=== PATIENT | male | born 1960 | race Caucasian/White ===

== ENCOUNTER 2020-12-15 16:25 | Inpatient (IN) ==
[2020-12-15] MEDS ORDERED: IOPAMIDOL 100 ML BOTTLE IV ONE (16:26)
[2020-12-15] MEDS ORDERED: ONDANSETRON 4 MG/2 ML VIAL IV ONE (16:27)
[2020-12-15] MEDS ORDERED: 0.9 % SODIUM CHLORIDE 1,000 ML IV ONE (16:27)
[2020-12-15] MEDS: morphine 2 MG/ML VIAL IV PRN ×2 (16:46→17:59)
[2020-12-15] MEDS ORDERED: diphenhydrAMINE 50 MG/ML VIAL IV ONE (16:49)
[2020-12-15 16:58] LABS: POC Creatinine 0.8 mg/dL (0.6-1.2)
--- NOTE | 2020-12-15 16:58 | Emergency Department Note ---
Abdominal Pain HPI General Chief Complaint: Abdominal Pain Stated Complaint: abdominal pain Time Seen by Provider: 12/15/20 16:27 Source: patient Mode of arrival: ambulatory Limitations: no limitations History of Present Illness HPI Narrative: 60-year-old male with a history of hypertension presents the ER to be evaluated for generalized abdominal pain. I received a call from Dr. Fink at the urgent care and stated he had significant abdominal pain with decreased bowel sounds. She wanted him to have further evaluation in the emergency room. The only medication he takes is losartan at this time. He states he has had CT scans previously with contrast and he felt hot inside but did not have any rash, hives or airway involvement. He states his abdominal pain was acute in onset this morning at approximately 8:30 in the morning. It was not after eating food. He has never had an abdominal surgery and still has his gallbladder and. He has had no vomiting. He only becomes nauseous when he has bouts of abdominal pain which has been intermittent and nothing is made them better or worse and he is unsure what triggers them. He defines his pain is periumbilical. He denies diarrhea, blood or mucus in his stool and has been passing regular urinary symptoms. He denies chest pain or chest pressure. He has no other acute complaints at this time. Pt last ate around 8:30 am a few pieces of toast. Related Data Previous Rx's Medication Instructions Recorded losartan 100 1 tab PO QDAY #30 tab 03/28/18 mg-hydrochlorothiazide 12.5 mg tablet Allergies Allergy/AdvReac Type Severity Reaction Status Date / Time iodine Allergy Intermediate Unknown Verified 12/15/20 16:30 Review of Systems ROS ROS Narrative: Narrative: All systems ED: reviewed and negative except as stated. PFS Narrative Patient History Narrative: Narrative: Medical/Surgical/Family History All Active Problems (Updated 12/15/20 @ 18:55 by Orlando Mcknight PA-C) Bowel obstruction (Acute) Abdominal pain (Acute) Chest pain (Acute) Hyperglycemia (Acute) Benign positional vertigo (Acute) Diabetes mellitus, new onset (Acute) Thoracic back pain (Chronic) Plantar fasciitis of left foot (Chronic) Hx of colonoscopy (Chronic) Mixed hyperlipidemia (Chronic 01/04/15) Hypertension, essential (Chronic 01/04/15) Medical History Abdominal pain Hypertension, essential (01/04/15) daily monitoring, aerobic exercise, watch salt intake Mixed hyperlipidemia (01/04/15) Plantar fasciitis of left foot ice, stretch with tennis ball qhs after work, firm soled boots with good arch support Surgical History Hx of colonoscopy 2008- Parent Family History Brother Cerebrovascular accident (CVA) Essential hypertension Mother Malignant neoplasm of lung Father Acute myocardial infarction Grandmother Malignant neoplasm of pancreas Social History Smoking Status: Smokeless tobacco Alcohol Intake Frequency: a few times a week Substance Use: does not use Exam Narrative Narrative: Gen: Patient in obvious discomfort pacing back and forth in the room with normal gait. Eyes: PERRL, no conjunctival injection , and symmetrical lids. Sclerae non icteric CVS: +S1/S2, No murmurs or gallops. Radial pulses 2+ and equal bilat. No swelling RESP: Unlabored respiratory effort . Clear to auscultation bilaterally (CTAB). No noted wheezes rales or ronchi. GI: Slight distention of the abdomen, no significant tenderness to palpation. Patient is tender to deep palpation over the umbilicus and the left lower qu adrant. No rebound tenderness or focal peritonitis. Patient has hypoactive bowel sounds MSK: Extremities w/o deformity or ttp. No cyanosis or clubbing. Skin: Warm, Dry . No rashes or lesions . Cap refill less than 2. Neuro: No focal neurological deficit Psych: Awake, Alert, & Oriented (AAO) x3. Appropriate mood and affect . General Limitations: no limitations Course Course Course Narrative: Patient will be evaluated with CBC, CMP, lipase and given Zofran and morphine for nausea and pain. He does report that he felt hot last time he had contrast. He will be premedicated with 50 mg of Benadryl for the CT scan of the abdomen and pelvis. Point of care creatinine will also be evaluated before contrast load. Patient will also be hydrated with fluids. Vital Signs Vital signs: Vital Signs Temperature 98.1 F 12/15/20 16:26 Pulse Rate 71 12/15/20 16:26 Respiratory Rate 18 12/15/20 16:26 Blood Pressure 137/76 12/15/20 16:26 Pulse Oximetry (%) 99 12/15/20 16:26 Temperature 98.1 F 12/15/20 16:26 Pulse Rate 64 12/15/20 16:33 Respiratory Rate 18 12/15/20 16:26 Blood Pressure 116/75 12/15/20 16:33 Pulse Oximetry (%) 97 12/15/20 16:33 MDM MDM Narrative Medical decision making narrative: Patient tolerated contrast load well without any allergic type picture. He is now comfortably sitting in the room without any abdominal pain. Pending lab work and CT results. CBC: Unremarkable CMP: Glucose elevated 185 otherwise unremarkable Lipase: Normal CT the abdomen pelvis: Mid jejunal stricture and partial obstruction I spoke with Dr. Melgar general surgeon on the phone who said he would review imaging back. Went back in to discuss results with the patient and he said he is having his pain occur intermittently and sometimes it is improved with positioning but he feels like the morphine is not completely relieving his pain anymore. He says the episodes of pain come and go and he is currently pain-free but he had several minutes that were excruciating. Dr. Melgar: I saw the patient in the room with Dr. Melgar who will admit the patient will likely do surgery tomorrow. He requested NG tube be placed. Patient will be admitted to the surgical floor. Lab Data Result diagrams: 12/15/20 16:47 12/15/20 16:47 Discharge Plan Patient/Caregiver Discharge Instructions Pt seen by ORTHOTIST PROSTHETIST/PA only: No Clinical Impression: Bowel obstruction Patient Disposition: Xfer As Inpt ([facility]) Follow up with: No,PCP [Primary Care Provider] - Mundo Melgar MD [Physician] - Prescriptions: No Action losartan-hydrochlorothiazide 100-12.5 mg tablet 1 tab PO QDAY Qty: 30 RF: 12
[2020-12-15 17:29] LABS: Basophils # (Auto) 0.01 K/mcL (0.00-0.20); Basophils % (Auto) 0.1 % (0.0-2.0); Eosinophils # (Auto) 0.01 K/mcL (0.00-0.70); Eosinophils % (Auto) 0.1 % (0.0-7.0); Hematocrit 46.6 % (41.0-55.0); Hemoglobin 15.8 g/dL (13.5-16.5); Lymphocytes # (Auto) 0.56 K/mcL (1.50-4.80); Lymphocytes % (Auto) 6.1 % (15.0-49.0); Mean Cell Volume 90.1 fL (80.0-100.0); Mean Corpuscular HGB Conc 33.9 g/dL (31.0-36.0); Mean Platelet Volume 10.9 fL (7.4-10.4); Monocytes # (Auto) 0.21 K/mcL (0.10-0.90); Monocytes % (Auto) 2.3 % (1.0-12.0); Neutrophils % (Auto) 91.4 % (38.0-78.0); Platelet Count 260 K/mcL (140-440); RBC 5.17 M/mcL (4.50-5.90); Red Cell Distribution Width 12.2 % (11.5-14.5); WBC 9.2 K/mcL (4.5-11.0)
[2020-12-15 17:49] LABS: ALT/SGPT 31 U/L (<40); AST/SGOT 20 U/L (<40); Albumin 4.3 gm/dL (3.2-5.2); Albumin/Globulin Ratio 1.3 (1.0-2.3); Alkaline Phosphatase 97 U/L (39-117); Bilirubin,Total 0.6 mg/dL (0.1-1.0); Blood Urea Nitrogen 12 mg/dL (6-20); Calcium 9.3 mg/dL (8.6-10.4); Carbon Dioxide 27 mmol/L (22-30); Chloride 99 mmol/L (96-108); Globulin 3.4 gm/dL (2.2-3.7); Glomerular Filtration Rate 93; Glucose 185 mg/dL (70-105)
--- NOTE | 2020-12-15 17:59 | Cat Scan Report ---
CLINICAL INFORMATION: Periumbilical pain COMPARISON: None. TECHNIQUE: Following enteric contrast, 80 cc of Isovue-370 were injected intravenously, and 60 seconds later, 0.625 mm helical slices were obtained from the mid heart through the subtrochanteric regions. Following reconstruction, 2.5 mm sagittal, coronal and axial reformatted images were processed and reviewed at bone, lung and soft tissue windows. Five minutes later, 0.625 mm helical slices were obtained from the mid heart through the kidneys and viewed at soft tissue windows.The exam was performed using radiation dose optimization techniques including, but not limited to, automated exposure control, adjustment of the mA and/or kV according to patient size and use of iterative reconstruction technique. FINDINGS: Lung bases show no abnormality - no effusion. Visualized heart is normal. Abdominal images show the gallbladder and bile ducts, liver, both kidneys, adrenal glands, spleen, pancreas and aorta, including aortic branches be normal in size and duration attenuation without focal lesion. There is no free air, free fluid or adenopathy. Pelvic images show urinary bladder, prostate and seminal vesicles to be normal. The stomach, duodenum and proximal jejunum are moderately dilated due to a mild stricture at the mid jejunal level in the anterior mid mesenteric cavity. This is best seen on axial image 112 and coronal image 24. The small bowel distal to this is decompressed and there is only minimal stool within the colon.The appendix is normal. Bone windows show partial ankylosis of the SI joints and chest progressed from previous CT. No other osseous abnormality. No syndesmophytes or other signs of ankylosing spondylitis in the lumbar spine IMPRESSION: 1. 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 2. Partial ankylosis of the SI joints. Patient may have ankylosing spondylitis. Please correlate HLA-B27 and other arthritic serologies Interpreted and Authenticated by: Vladimir Godoy 12/15/20
[2020-12-15] MEDS ORDERED: morphine 4 MG/ML VIAL IV PRN (19:11)
[2020-12-15] MEDS ORDERED: ONDANSETRON 4 MG/2 ML VIAL IV PRN (19:11)
--- NOTE | 2020-12-15 19:21 | General Surg History&Physical ---
HPI History of Present Illness Patient information: Note initiated : 12/15/20 at 7:18 pm Service Date, if different from initiated Date: [] Patient: Duane Mcnulty a 60 y/o M admitted on for abdominal pain. Chief Complaint: [] Chief complaint: Abdominal pain and distention History of present illness: Mr. Mcnulty is a 60 year old M who presents to [facility] emergency room with 1 day history of abdominal distention, crampy a bdominal pain. He was in his normal state of health without any prior significant past medical or surgical history who this afternoon started having crampy abdominal pain. It gradually progressed over the day he got to the point where he could not stand any further. Presented to the emergency room where CT scan is consistent with a mid small bowel obstruction. He denies any prior abdominal surgery. He denies any fevers or chills. He has had mild nausea without emesis. Review of Systems Review of systems: All systems are reviewed, negative other than above PFSH PFSH All Active Problems Bowel obstruction (Acute) Abdominal pain (Acute) Chest pain (Acute) Hyperglycemia (Acute) Benign positional vertigo (Acute) Diabetes mellitus, new onset (Acute) Thoracic back pain (Chronic) Plantar fasciitis of left foot (Chronic) Hx of colonoscopy (Chronic) Mixed hyperlipidemia (Chronic 01/04/15) Hypertension, essential (Chronic 01/04/15) Medical History Abdominal pain Hypertension, essential (01/04/15) daily monitoring, aerobic exercise, watch salt intake Mixed hyperlipidemia (01/04/15) Plantar fasciitis of left foot ice, stretch with tennis ball qhs after work, firm soled boots with good arch support Surgical History Hx of colonoscopy 2007- Parent Family History Brother Cerebrovascular accident (CVA) Essential hypertension Mother Malignant neoplasm of lung Father Acute myocardial infarction Grandmother Malignant neoplasm of pancreas Social History marital status: single alcohol intake frequency: a few times a week substance use type: does not use MEDS/ALLERGIES Home Medications and Allergies Home Medications Medication Instructions Recorded Confirmed Type losartan 100 1 tab PO QDAY #30 tab 03/28/18 12/15/20 Rx mg-hydrochlorothiazide 12.5 mg tablet Allergies Allergy/AdvReac Type Severity Reaction Status Date / Time iodine Allergy Intermediate Unknown Verified 12/15/20 16:30 Physical Examination Vital Signs Vital signs: Temp Pulse Resp BP Pulse Ox 98.1 F 72 18 115/77 96 12/15/20 16:26 12/15/20 18:31 12/15/20 16:26 12/15/20 19:01 12/15/20 18:31 General physical appearance General physical exam: well developed, well nourished and no distress Eyes Eye exam: PERRL and normal ocular movement ENT ENT exam: normal pinna, normal nares, normal mucosa, no hearing loss and no congestion Head Head exam IM: Present atraumatic and normocephalic Neck Neck exam: no masses, no bruits, trachea midline, no lymphadenopathy and no venous distension Cardiovascular Cardiovascular exam IM: Present normal rate and rhythm Respiratory Respiratory exam: normal expansion, normal respiratory effort, clear to percussion and clear to auscultation Abdomen Abdomen: Present soft, bowel sounds and distended Hernia: Present none Genitourinary Genitourinary (Male): Present normal penis with no external lesions Rectum Rectum: Present normal sphincter tone, no hemorrhoids, no tenderness, no masses and no bleeding Integumentary Integumentary: Present no rash, no growths and no abnormal pigmentation Neurologic Neurologic: Present normal coordination and normal sensation Musculoskeletal Musculoskeletal: Present normal gait and normal posture Psychiatric Psychiatric: Present oriented to time, oriented to person, oriented to place, speech is normal and memory intact Results Labs Result diagrams: 12/15/20 16:47 12/15/20 16:47 Labs: Abnormal lab results 12/15/20 12/15/20 Range/Units 16:47 16:47 MPV 10.9 H (7.4-10.4) fL Neut % (Auto) 91.4 H (38.0-78.0) % Lymph % (Auto) 6.1 L (15.0-49.0) % Lymph # (Auto) 0.56 L (1.50-4.80) K/mcL Absolute Neutrophils 8.39 H (1.80-8.00) K/mcL Glucose 185 H (70-105) mg/dL Diabetes panel 12/15/20 Range/Units 16:47 Sodium 136 (133-145) mmol/L Potassium 4.3 (3.3-5.1) mmol/L Chloride 99 (96-108) mmol/L Carbon Dioxide 27 (22-30) mmol/L BUN 12 (6-20) mg/dL Creatinine 0.9 (0.7-1.2) mg/dL Glucose 185 H (70-105) mg/dL Calcium 9.3 (8.6-10.4) mg/dL AST 20 (<40) U/L ALT 31 (<40) U/L Alkaline Phosphatase 97 (39-117) U/L Total Protein 7.7 (5.9-8.4) gm/dL Albumin 4.3 (3.2-5.2) gm/dL Calcium panel 12/15/20 Range/Units 16:47 Calcium 9.3 (8.6-10.4) mg/dL Albumin 4.3 (3.2-5.2) gm/dL Pituitary panel 12/15/20 Range/Units 16:47 Sodium 136 (133-145) mmol/L Potassium 4.3 (3.3-5.1) mmol/L Chloride 99 (96-108) mmol/L Carbon Dioxide 27 (22-30) mmol/L BUN 12 (6-20) mg/dL Creatinine 0.9 (0.7-1.2) mg/dL Glucose 185 H (70-105) mg/dL Calcium 9.3 (8.6-10.4) mg/dL Adrenal panel 12/15/20 Range/Units 16:47 Sodium 136 (133-145) mmol/L Potassium 4.3 (3.3-5.1) mmol/L Chloride 99 (96-108) mmol/L Carbon Dioxide 27 (22-30) mmol/L BUN 12 (6-20) mg/dL Creatinine 0.9 (0.7-1.2) mg/dL Glucose 185 H (70-105) mg/dL Calcium 9.3 (8.6-10.4) mg/dL Total Bilirubin 0.6 (0.1-1.0) mg/dL AST 20 (<40) U/L ALT 31 (<40) U/L Alkaline Phosphatase 97 (39-117) U/L Total Protein 7.7 (5.9-8.4) gm/dL Albumin 4.3 (3.2-5.2) gm/dL All other labs normal. A/P Narrative A/P Narrative: This is a pleasant 60-year-old gentleman without prior abdominal surgery who presents with a high-grade small bowel obstruction in the mid jejunum. Patient has no prior abdominal surgery, therefore no reason for adhesive disease. Discussed with him at length high likelihood for need of surgery given his CT findings and no prior surgery. Risk benefits and alternatives to treatment plan discussed at length, he verbalizes understanding and desires to continue with treatment. Plan admit, will make him n.p.o., NG tube and I do want to the OR schedule in th e a.m. for a laparoscopic exploration possible small bowel resection. Time Spent With Patient Time: Total time spent is greater than 50% in coordination of care (as documented) at patient's floor/unit and/or counseling patient:
[2020-12-15] MEDS ORDERED: ceFAZolin 2 GM in DEXTROSE 5% IN WATER 50 ML IV SCH (19:30)
[2020-12-15] MEDS: LACTATED RINGERS 1,000 ML IV SCH (21:39)
[2020-12-15] MEDS: 0.9 % SODIUM CHLORIDE 10 ML SYRINGE IV SCH (22:19)
--- NOTE | 2020-12-16 03:45 | XRay Report ---
CLINICAL INFORMATION: GE position COMPARISON: None. TECHNIQUE: PA and Lateral views FINDINGS: NG tube is in the proximal gastric body The heart size, mediastinum and pulmonary vessels are unremarkable. The lungs are clear. There are no effusions. The bones and soft tissues are within normal limits. IMPRESSION: No cardiopulmonary disease. NG tube in the proximal gastric body. Interpreted and Authenticated by: Vladimir Godoy 12/16/20
[2020-12-16] MEDS: LACTATED RINGERS 1,000 ML IV SCH ×4 (05:50→21:41)
[2020-12-16] MEDS: 0.9 % SODIUM CHLORIDE 10 ML SYRINGE IV SCH ×3 (06:06→21:42)
[2020-12-16 08:44] LABS: Appearance,Urine CLEAR (Clear); Bilirubin,Urine Negative (Negative); Color,Urine YELLOW; Culture Indicated,Urine No; Glucose,Urine (UA) Negative (Negative); Ketones,Urine Negative (Negative); Leukocyte Esterase,Urine Negative /ug (Negative); Nitrate,Urine Negative (Negative); Protein,Urine Negative (Negative); Specific Gravity,Urine 1.032 (1.000-1.035); Urine Blood Negative (Negative); Urobilinogen,Urine Negative
[2020-12-16] MEDS ORDERED: IPRATROPIUM/ALBUTEROL 3 ML AMPUL.NEB NEB PRN ×2 (10:00→13:07)
[2020-12-16] MEDS ORDERED: SCOPOLAMINE 1 PATCH PATCH TOPICAL PRN (10:00)
[2020-12-16] MEDS ORDERED: ceFAZolin 2 GM in DEXTROSE 5% IN WATER 50 ML IV SCH (11:00)
[2020-12-16] MEDS ORDERED: GLYCOPYRROLATE 0.2 MG/ML VIAL IV ONE (12:05)
[2020-12-16] MEDS ORDERED: PROPOFOL 200 MG/20 ML VIAL IV ONE (12:05)
[2020-12-16] MEDS ORDERED: MAGNESIUM SULFATE 2 GM/50 ML BAG IV ONE (12:05)
[2020-12-16] MEDS ORDERED: MIDAZOLAM 2 MG/2 ML VIAL ONE (12:05)
[2020-12-16] MEDS ORDERED: PHENYLEPHRINE 10 MG/ML VIAL ONE (12:05)
[2020-12-16] MEDS ORDERED: fentaNYL 100 MCG/2 ML VIAL IV ONE (12:05)
[2020-12-16] MEDS ORDERED: ONDANSETRON 4 MG/2 ML VIAL ONE (12:05)
[2020-12-16] MEDS ORDERED: ROCURONIUM 10 MG/ML ML IV ONE (12:05)
[2020-12-16] MEDS ORDERED: SUCCINYLCHOLINE 20 MG/ML ML IV ONE (12:05)
[2020-12-16] MEDS ORDERED: SUGAMMADEX SODIUM 200 MG/2 ML VIAL IV ONE (12:05)
[2020-12-16] MEDS ORDERED: LIDOCAINE HCL/PF 100 MG/5 ML SYRINGE IV ONE (12:05)
[2020-12-16] MEDS ORDERED: KETAMINE 100 MG/ML ML ONE (12:05)
[2020-12-16] MEDS ORDERED: HYDROmorphone 1 MG/ML SYRINGE ONE (12:05)
[2020-12-16] MEDS ORDERED: DEXAMETHASONE 10 MG/ML VIAL ONE (12:05)
[2020-12-16] MEDS ORDERED: MEPERIDINE 25 MG/ML VIAL IV PRN (13:07)
[2020-12-16] MEDS ORDERED: BENZOCAINE/MENTHOL 1 LOZENGE PO PRN (13:07)
[2020-12-16] MEDS ORDERED: fentaNYL 100 MCG/2 ML VIAL IV PRN (13:07)
[2020-12-16] MEDS ORDERED: ACETAMINOPHEN 1,000 MG/100 ML BAG IV ONE (13:07)
[2020-12-16] MEDS ORDERED: HYDROmorphone 0.5 MG/0.5 ML SYRINGE IV PRN (13:07)
[2020-12-16] MEDS ORDERED: KETOROLAC 15 MG/ML VIAL IV PRN (13:07)
[2020-12-16] MEDS ORDERED: ONDANSETRON 4 MG/2 ML VIAL IV PRN (13:07)
[2020-12-16] MEDS: LIDOCAINE W/EPI 1% 20 ML VIAL IJ ONE ×2 (13:14→20:07)
[2020-12-16] MEDS ORDERED: LACTATED RINGERS 1,000 ML IV SCH (13:15)
[2020-12-16] MEDS: BUPIVACAINE 0.5% 50 ML VIAL IJ ONE ×2 (13:15→20:07)
--- NOTE | 2020-12-16 13:24 | Operative Note ---
Brief Operative Note Date of procedure: 12/16/20 Pre-op diagnosis: Partial small bowel obstruction Post-op diagnosis: same Procedure: Exploratory laparoscopy, open exploration Anesthesia: GETA Findings: Transition point without adhesions or obstructing mass. Surgeon: Mundo Melgar Estimated blood loss (cc): 5 Specimens Removed/Pathology: none sent Condition: stable Disposition: PACU Operative Note Operative Note: After risk benefits and alternatives to the procedure were discussed with the patient at length he verbalized understanding and desire to continue with the procedure. Patient was taken main operating room placed upon the operative table. General anesthesia was induced over endotracheal tube. Patient's prepped and draped in the standard sterile surgical fashion. Surgical timeout was taken to verify patient and procedure being performed. 1% lidocaine half percent Marcaine was used for local anesthesia. Left side incision was made in the abdominal cavity was entered under direct vision using a 5 mm Optiview trocar. Visual inspection revealed no injuries. Full expiration revealed dilated proximal small bowel with decompressed distal small bowel. 2 additional 5 mm trochars were then placed under direct vision the bowel was followed to the ligament of Treitz where dilated small bowel was encountered. This was then carefully followed all the way down to the terminal ileum. There was an area of dilated bowel which transition slowly into decompressed bowel without any obvious cause of obstruction. Since no obstruction was identified a upper midline incision was made carried down through skin subcutaneous tissue. The midline was opened and the small bowel was once again ran from the ligament of Treitz to the terminal ileum there was a clear area of transition without a specific transition point. There was no adhesive tissue. There was no mass. There was no stricture. The small bowel contents were milked through the entire bowel to the terminal ileum without evidence of stricture or mass. The bowel was returned to the abdominal cavity. Further exploration revealed no further pathology. The midline fascial defect was reapproximated with a running 0 PDS suture. Skin was closed 4-0 Monocryl sutures and skin glue dressings were applied. Patient was then awakened from anesthesia transferred postanesthesia care unit awake alert in good condition.
[2020-12-16] MEDS ORDERED: morphine 4 MG/ML VIAL IV PRN (14:24)
[2020-12-16] MEDS: METOCLOPRAMIDE 10 MG/2 ML VIAL IV SCH (18:01)
[2020-12-17] MEDS: METOCLOPRAMIDE 10 MG/2 ML VIAL IV SCH ×2 (01:32→06:00)
[2020-12-17] MEDS: LACTATED RINGERS 1,000 ML IV SCH (05:45)
[2020-12-17] MEDS: 0.9 % SODIUM CHLORIDE 10 ML SYRINGE IV SCH (06:01)
[2020-12-17] MEDS: LOSARTAN 50 MG TABLET PO SCH ×2 (08:46→08:52)
[2020-12-17] MEDS: HYDROCHLOROTHIAZIDE 12.5 MG CAPSULE PO SCH ×2 (08:46→08:53)
[2020-12-17] MEDS ORDERED: NON FORMULARY MEDICATION 1 DOSE MISCELL (Losartan-Hydrochlorothiazide 100-12.5 mg tablet) PO SCH (09:00)
--- NOTE | 2020-12-17 10:27 | Discharge Summary ---
Discharge Provider Provider Patient information: Note initiated : 12/17/20 at 10:25 am Service Date, if different from initiated Date: [] Patient: Duane Mcnulty 60 y/o M admitted on 12/15/20 for abdominal pain. Chief Complaint: [] Date of admission: 12/15/20 20:52 Discharge date: 12/17/20 Primary care physician: PCP No Consults: 12/15/20 Consult to Physician [CONS] Stat Comment: Consulting Provider: Mundo Melgar Reason For Exam: Physician to Consult COURSE Hospital Course Hospital course: Patient admitted for a partial small bowel obstruction, underwent a laparoscopic-assisted exploration. Postop patient progressed well without difficulty, tolerating regular diet, ambulate. Discharge diagnosis: Small bowel obstruction Procedures: Laparoscopic assisted exploration Time Spent with Patient Time attestation: Total time spent providing and/or coordinating discharge services: Physical Examination Vital Signs Vital signs: Temp Pulse Resp BP Pulse Ox 97.5 F 57 L 20 116/60 95 12/17/20 06:45 12/17/20 06:45 12/17/20 06:45 12/17/20 06:45 12/17/20 06:45 General physical appearance General physical exam: no distress Abdomen Abdomen: Present soft and non tender (Incisions are clean dry and intact) Discharge Plan Patient/Caregiver Discharge Instructions Activity: increase activity as tolerated Diet: Regular Diet Activity Restrictions/Additional Instructions: Gradually resume normal activities, no weight lifting restriction. Patient may shower as tolerated starting today. Return to the emergency room for nausea vomiting fevers or chills. Prescriptions: New ibuprofen 800 mg tablet 800 mg PO TID PRN (Reason: pain) Qty: 60 RF: 0 acetaminophen [Tylenol 8 Hour] 650 mg tablet extended release 650 mg PO Q8H PRN (Reason: pain) Qty: 60 RF: 0 oxycodone 5 mg tablet 5 mg PO Q6H PRN (Reason: pain) Qty: 5 RF: 0 Continued losartan-hydrochlorothiazide 100-12.5 mg tablet 1 tab PO QDAY Qty: 30 RF: 12 Follow Up Plan Follow up with: Mundo Melgar MD [Physician] - (Follow-up with me in 2 to 3 weeks.) No,PCP [Primary Care Provider] - Patient Disposition: Home, Self-Care Hospital Course: Patient was admitted with a partial small bowel obstruction, underwent a laparoscopic-assisted exploration. Postop patient is doing well, tolerating diet ambulating with resolution of abdominal pain. Prognosis: Good Overall status at discharge: patient is progressing back to baseline Discharge Orders: Discharge Order (Routine); Ordered 12/17/20 Ordered By: Mundo Melgar Pending Pending Pending: Resuscitation Status Full Code Diet Clear Liquid Diet Start SatDec 16 1326 Hydrochlorothiazide (Hydrochlorothiazide 12.5 Mg Capsule) 12.5 mg PO DAILY [facility] Last Admin: 12/17/20 08:53 Dose: Not Given Documented by: AICHA Lactated Ringer's (Lactated Ringers) 1,000 mls @ 125 mls/hr IV .Q8H [facility] Last Admin: 12/17/20 05:45 Dose: 125 mls/hr Documented by: Infusion: 12/17/20 05:41 Dose: 125 mls/hr Documented by: Admin: 12/16/20 21:41 Dose: 125 mls/hr Documented by: Admin: 12/16/20 15:25 Dose: Not Given Documented by: AICHA Losartan Potassium (Losartan 50 Mg Tablet) 100 mg PO DAILY [facility] Last Admin: 12/17/20 08:52 Dose: Not Given Documented by: AICHA Metoclopramide HCl (Metoclopramide 10 Mg/2 Ml Vial) 5 mg IV Q6 [facility] Last Admin: 12/17/20 06:00 Dose: 5 mg Documented by: Admin: 12/17/20 01:32 Dose: 5 mg Documented by: Admin: 12/16/20 18:01 Dose: 5 mg Documented by: AICHA Morphine Sulfate (Morphine 4 Mg/Ml Vial) 4 mg IV Q4HP PRN; Protocol PRN Reason: Per Pain Protocol Last Admin: 12/17/20 08:46 Dose: 4 mg Documented by: AICHA Sodium Chloride (0.9 % Sodium Chloride 10 Ml Syringe) 10 ml IV Q8 [facility] Last Admin: 12/17/20 06:01 Dose: 10 ml Documented by: Admin: 12/16/20 21:42 Dose: 10 ml Documented by: MYA Shift Summary 12/17/20 04:26 Shift Summary by Dory Craig Addendum entered by Dory Craig R.N. 12/17/20 06:03: Pt reported passing flatus this morning. Original Note: Diagnosis: Partial Small Bowel Obstruction, S/p Ex-Lap, Open Exploration Hx HTN. Orientation: Alert and oriented x4 Oxygen/Airway needs: RA. Ambulation status: Up with standby assist. Ambulated in halls last night 400 ft. Voiding: Voids to the bathroom. Uses the urinal at night. IV access:IVF LR @ 125 infusing well on RFA. IV on SUKHJINDER kept saline locked. Tubes/drains: None Pain: Denies needing pain medication this shift. Wounds: Small midline incision. Three lap sites on left abomen. Discharge plans: TBD. Vitals: VSS. Others: Active bowel tones. No flatus reported yet. Denies any nausea this shift. Initialized on 12/17/20 04:26 - END OF NOTE
== END 2020-12-17 12:25 | disposition home or self-care (01) | DRG 346 ==
LOC: ED 16:25 → MEDSUR 20:52
PROVIDERS: ADMIT Surgery; ATTEND Surgery

== ENCOUNTER 2022-08-18 17:14 | Observation (INO) ==
[2022-08-18 18:03] LABS: POC Calcium, Ionized 1.15 (1.16-1.32); POC Creatinine 0.9 (0.6-1.2)
[2022-08-18] MEDS ORDERED: 0.9 % SODIUM CHLORIDE 1,000 ML IV ONE (18:43)
--- NOTE | 2022-08-18 18:51 | Emergency Department Note ---
Abdominal Pain HPI General Chief Complaint: Abdominal Pain Stated Complaint: stomach pain Time Seen by Provider: 08/18/22 18:35 Source: patient Mode of arrival: ambulatory Limitations: no limitations History of Present Illness HPI Narrative: Narrative: 62-year-old male with past medical history of diabetes mellitus, small intestine obstruction and as below presents with sharp persistent moderate to severe 7-10 diffuse abdominal pain since 1130 this morning. No headache dizziness chest pain nausea vomiting constipation diarrhea fever or chills Related Data Home Medications Medication Instructions Recorded Confirmed aspirin 81 mg chewable tablet 81 mg PO QDAY 07/31/22 07/31/22 Previous Rx's Medication Instructions Recorded losartan 100 mg tablet 100 mg PO QDAY #90 tabs 03/22/22 metformin 500 mg tablet,extended 500 mg PO QDAY #90 tabs 03/22/22 release 24hr Allergies Allergy/AdvReac Type Severity Reaction Status Date / Time iodine Allergy Intermediate Unknown Verified 08/18/22 17:19 Review of Systems ROS ROS Narrative: Narrative: All systems ED: reviewed and negative except as stated. Constitutional: Reports as per HPI PFSH Narrative Patient History Narrative: Narrative: Medical/Surgical/Family History All Active Problems (Updated 08/18/22 @ 18:50 by Checo Serrano MD) Abdominal pain (Acute) Actinic keratitis (Acute) DVT (deep venous thrombosis) (Acute) Left upper extremity swelling (Acute) DMII (diabetes mellitus, type 2) (Acute) LLQ abdominal pain (Acute) Small intestine obstruction (Chronic ~2020) Thoracic back pain (Chronic) Diabetes mellitus, new onset (Chronic) Benign positional vertigo (Chronic) Hyperglycemia (Chronic) Chest pain (Chronic) Bowel obstruction (Chronic) Abdominal pain (Chronic) Plantar fasciitis of left foot (Chronic) Hx of colonoscopy (Chronic ~2007) Mixed hyperlipidemia (Chronic 01/04/15) Hypertension, essential (Chronic 01/04/15) Medical History (Updated 08/18/22 @ 18:50 by Checo Serrano MD) Abdominal pain Benign positional vertigo Bowel obstruction Chest pain Diabetes mellitus, new onset DMII (diabetes mellitus, type 2) Hyperglycemia Hypertension, essential (01/04/15) Daily monitoring, aerobic exercise, watch salt intake. Left upper extremity swelling Mixed hyperlipidemia (01/04/15) Plantar fasciitis of left foot Ice, stretch with tennis ball after work, firm soled boots with good arch support. Small intestine obstruction (~2020) Thoracic back pain Surgical History History of exploratory laparotomy (~12/16/20) Hx of colonoscopy (~2007) Parent Family History Brother Cerebrovascular accident (CVA) Essential hypertension Mother Malignant neoplasm of lung Father Acute myocardial infarction Grandmother Malignant neoplasm of pancreas Social History Smoking Status: Former smoker Alcohol Intake Frequency: a few times a week Substance Use: does not use Exam Narrative Narrative: Narrative: General Limitations: no limitations General appearance: Present alert and in no apparent distress Head Head: Present atraumatic and normocephalic Eye Eye: Present normal appearance Respiratory Respiratory: Present normal lung sounds bilaterally Cardiovascular Cardiovascular: Present regular rate, normal rhythm and normal heart sounds Adbominal Abdominal: Present soft, tenderness (Diffuse moderate left lower quadrant), guarding and normal bowel sounds; Absent rebound or organomegaly Extremities Extremities: Absent pedal edema, cyanosis or clubbing Neurological Neurological: Present alert and oriented X3 Course Course Course Narrative: CBC, CMP, amylase, lipase, COVID, UA, CT abdomen without contrast were ordered. Normal saline 1000 mL IV was given. Dilaudid 0.5 mg IV given. Care transferred to Dr. Malone as discussed with him. Vital Signs Vital signs: Vital Signs Temperature 96.8 F L 08/18/22 17:17 Pulse Rate 63 08/18/22 17:17 Respiratory Rate 18 08/18/22 17:17 Blood Pressure 137/82 08/18/22 17:17 Pulse Oximetry (%) 98 08/18/22 17:17 Oxygen Delivery Method 08/18/22 17:17 Temperature 96.8 F L 08/18/22 17:17 Pulse Rate 59 L 08/18/22 18:31 Respiratory Rate 18 08/18/22 17:17 Blood Pressure 140/88 08/18/22 18:31 Pulse Oximetry (%) 97 08/18/22 18:31 Oxygen Delivery Method 08/18/22 17:17 MDM MDM Narrative Medical decision making narrative: Narrative: Lab Data Result diagrams: 08/18/22 17:52 Labs: Lab Results 08/18/22 Range/Units 17:57 POC Hct 46.0 (41-55) POC Sodium 138 (133-145) POC Potassium 5.0 (3.3-5.1) POC Chloride 102 (96-108) POC Total CO2 31.0 H (22-30) POC BUN 35 H (6-20) POC Creatinine 0.9 (0.6-1.2) POC Glucose 192 H (70-105) POC WB Ioniz Calcium 1.15 L (1.16-1.32) Discharge Plan Patient/Caregiver Discharge Instructions Pt seen by [employer]/PA only: No Clinical Impression: Abdominal pain Patient Disposition: Still a Patient Follow up with: Thomas Suh MD [Primary Care Provider] - Prescriptions: No Action losartan 100 mg tablet 100 mg PO QDAY Qty: 90 1RF metformin 500 mg tablet extended release 24hr 500 mg PO QDAY Qty: 90 1RF aspirin 81 mg tablet,chewable 81 mg PO QDAY
[2022-08-18] MEDS ORDERED: HYDROmorphone 0.5 MG/0.5 ML SYRINGE IV ONE (18:52)
[2022-08-18 19:23] LABS: Basophils # (Auto) 0.02 K/mcL (0.00-0.30); Basophils % (Auto) 0.2 % (0.0-2.0); Eosinophils # (Auto) 0.01 K/mcL (0.00-0.70); Eosinophils % (Auto) 0.1 % (0.0-7.0); Hematocrit 45.6 % (40.1-51.0); Hemoglobin 15.1 g/dL (13.7-17.5); Lymphocytes # (Auto) 0.64 K/mcL (1.50-4.80); Lymphocytes % (Auto) 5.6 % (15.5-49.0); Mean Cell Volume 90.5 fL (80.0-100.0); Mean Corpuscular HGB Conc 33.1 g/dL (31.0-36.0); Mean Platelet Volume 11.2 fL (8.8-12.5); Monocytes % (Auto) 1.8 % (1.0-12.0); Neutrophils % (Auto) 91.9 % (38.0-78.0); Platelet Count 263 K/mcL (140-440); RBC 5.04 M/mcL (4.63-6.08); Red Cell Distribution Width 12.8 % (11.5-14.5); WBC 11.4 K/mcL (4.5-11.0)
--- NOTE | 2022-08-18 19:30 | Cat Scan Report ---
History: Mid abdominal pain TECHNIQUE: Patient was imaged without contrast in axial plane at 2.5 mm intervals. Sagittal and coronal reformats were created. The radiation exposure was limited using dose reduction technology. FINDINGS: Mild gynecomastia is present. There is mild dependent atelectasis in the posterior basal segments of both lower lobes. Evaluation of the abdominal organs without contrast is somewhat limited. Patient reportedly had an allergic reaction to iodine in the past. The liver and spleen are normal in size and homogeneous. The gallbladder appears normal with no calcified stones or thickening of the wall. The bile ducts are nondilated. No abnormality is seen within the pancreas. The adrenals and kidneys are normal. There is no kidney stone or hydronephrosis. The aorta and inferior vena cava are normal. There is minimal atherosclerotic disease. The stomach is distended with large amount of fluid. The duodenum is normal in caliber. The jejunum is dilated and contains multiple air-fluid levels. It measures up to 3.6 cm in diameter. The wall is not thickened or inflamed. A transition point is not clearly identified. The ileum is normal in caliber. Terminal ileum is normal. The appendix is noninflamed. Large intestine is normal and contains a normal quantity of stool. There are no diverticula or inflammation of the large intestine. No mass, adenopathy or ascites are present. Urinary bladder prostate and seminal vesicles are normal. There is chronic ankylosis across both SI joints and partial ankylosis across the L5-S1 disc. Comparison with the prior CT done on 08/21/21 shows the small bowel dilatation is new since since that time. Similar findings with small bowel obstruction were seen on the earlier CT study dated 12/15/20. IMPRESSION: Recurrent small bowel obstruction in the general vicinity of the distal jejunum. This may be due to an adhesion. Dr. Serrano was called with the report Interpreted and Authenticated by: Hao Morales 08/18/22
--- NOTE | 2022-08-18 19:40 | Emergency Department Note ---
Course Course Course Narrative: Patient is a 62-year-old male with a history significant for small bowel obstruction who was signed out to me by Dr. Serrano. Briefly, patient presented due to abdominal pain. Labs and imaging were pending at signout. Vital Signs Vital signs: Vital Signs Temperature 96.8 F L 08/18/22 17:17 Pulse Rate 63 08/18/22 17:17 Respiratory Rate 18 08/18/22 17:17 Blood Pressure 137/82 08/18/22 17:17 Pulse Oximetry (%) 98 08/18/22 17:17 Oxygen Delivery Method 08/18/22 17:17 Temperature 96.8 F L 08/18/22 17:17 Pulse Rate 58 L 08/18/22 19:32 Respiratory Rate 18 08/18/22 17:17 Blood Pressure 100/59 08/18/22 19:32 Pulse Oximetry (%) 98 08/18/22 19:32 Oxygen Delivery Method 08/18/22 17:17 [facility] MDM Narrative Medical decision making narrative: Narrative: Patient is a 62-year-old male who presented to the emergency department due to abdominal pain. Patient CT scan demonstrates small bowel obstruction in the area of the distal jejunum. For this reason we will contact surgery for admission. I have spoken to Dr. Mcmanus who is agreed to evaluate this patient for admission. Lab Data Result diagrams: 08/18/22 17:52 Labs: Lab Results 08/18/22 08/18/22 08/18/22 Range/Units 17:52 17:52 17:57 WBC 11.4 H (4.5-11.0) K/mcL RBC 5.04 (4.63-6.08) M/mcL Hgb 15.1 (13.7-17.5) g/dL Hct 45.6 (40.1-51.0) % POC Hct 46.0 (41-55) MCV 90.5 (80.0-100.0) fL MCH 30.0 (26.0-34.0) pg MCHC 33.1 (31.0-36.0) g/dL RDW 12.8 (11.5-14.5) % Plt Count 263 (140-440) K/mcL MPV 11.2 (8.8-12.5) fL Immature Gran % (Auto) 0.4 (0.0-0.5) % Neut % (Auto) 91.9 H (38.0-78.0) % Lymph % (Auto) 5.6 L (15.5-49.0) % [place] % (Auto) 1.8 (1.0-12.0) % Eos % (Auto) 0.1 (0.0-7.0) % Baso % (Auto) 0.2 (0.0-2.0) % Lymph # (Auto) 0.64 L (1.50-4.80) K/mcL [place] # (Auto) 0.20 (0.10-0.90) K/mcL Eos # (Auto) 0.01 (0.00-0.70) K/mcL Baso # (Auto) 0.02 (0.00-0.30) K/mcL Immature Gran # 0.04 (0.00-0.05) K/mcl Absolute Neutrophils 10.51 H (1.80-8.00) K/mcL POC Sodium 138 (133-145) POC Potassium 5.0 (3.3-5.1) POC Chloride 102 (96-108) POC Total CO2 31.0 H (22-30) POC BUN 35 H (6-20) POC Creatinine 0.9 (0.6-1.2) POC Glucose 192 H (70-105) POC WB Ioniz Calcium 1.15 L (1.16-1.32) Total Bilirubin TNP Direct Bilirubin TNP AST TNP ALT TNP Alkaline Phosphatase TNP Total Protein TNP Albumin TNP Globulin TNP Amylase 46 (28-100) U/L Lipase 33 (7-60) U/L ED POC Tests ED POC Tests: ANGELICA - SARS Antigen Negative Discharge Plan Patient/Caregiver Discharge Instructions Pt seen by PICKER/PA only: No Clinical Impression: Abdominal pain Patient Disposition: Xfer As Inpt ([facility]) Follow up with: Thomas Suh MD [Primary Care Provider] - Prescriptions: No Action losartan 100 mg tablet 100 mg PO QDAY Qty: 90 1RF metformin 500 mg tablet extended release 24hr 500 mg PO QDAY Qty: 90 1RF aspirin 81 mg tablet,chewable 81 mg PO QDAY
[2022-08-18 19:43] LABS: Amylase 46 U/L (28-100)
[2022-08-18] MEDS ORDERED: ONDANSETRON 4 MG/2 ML VIAL IV ONE (20:02)
[2022-08-18] MEDS ORDERED: morphine 2 MG/ML VIAL IV PRN (20:02)
[2022-08-18] MEDS ORDERED: 0.9 % SODIUM CHLORIDE 1,000 ML BAG IV SCH (20:15)
[2022-08-18] MEDS ORDERED: ONDANSETRON 4 MG/2 ML VIAL IV PRN (20:22)
[2022-08-18] MEDS ORDERED: HYDROmorphone 1 MG/ML SYRINGE IV PRN (20:27)
[2022-08-18] MEDS ORDERED: PROMETHAZINE 25 MG/ML VIAL IV PRN (20:27)
[2022-08-18] MEDS ORDERED: DIATRIZOATE MEGLU/DIATRIZO SOD 120 ML BOTTLE PO ONE (20:50)
[2022-08-18] MEDS: 0.9 % SODIUM CHLORIDE 1,000 ML IV SCH (21:04)
[2022-08-18] MEDS: 0.9 % SODIUM CHLORIDE 10 ML SYRINGE IV SCH (21:13)
[2022-08-19] MEDS: METOCLOPRAMIDE 10 MG/2 ML VIAL IV SCH ×4 (00:29→17:47)
[2022-08-19 04:17] LABS: Appearance,Urine CLEAR (Clear); Bilirubin,Urine NEGATIVE (Negative); Color,Urine LT. YELLOW; Culture Indicated,Urine No; Glucose,Urine (UA) NEGATIVE (Negative); Ketones,Urine NEGATIVE (Negative); Leukocyte Esterase,Urine NEGATIVE /uL (Negative); Nitrate,Urine NEGATIVE (Negative); Protein,Urine NEGATIVE (Negative); Specific Gravity,Urine >= 1.030 (1.000-1.035); Urine Blood NEGATIVE ery/mcL (Negative); Urobilinogen,Urine Normal
[2022-08-19] MEDS: 0.9 % SODIUM CHLORIDE 1,000 ML IV SCH ×2 (05:17→13:12)
[2022-08-19] MEDS: 0.9 % SODIUM CHLORIDE 10 ML SYRINGE IV SCH ×3 (05:17→20:45)
[2022-08-19 06:42] LABS: Basophils # (Auto) 0.02 K/mcL (0.00-0.30); Basophils % (Auto) 0.2 % (0.0-2.0); Eosinophils # (Auto) 0.17 K/mcL (0.00-0.70); Eosinophils % (Auto) 1.5 % (0.0-7.0); Hematocrit 42.3 % (40.1-51.0); Hemoglobin 13.7 g/dL (13.7-17.5); Lymphocytes # (Auto) 2.38 K/mcL (1.50-4.80); Lymphocytes % (Auto) 21.4 % (15.5-49.0); Mean Cell Volume 92.2 fL (80.0-100.0); Mean Corpuscular HGB Conc 32.4 g/dL (31.0-36.0); Mean Platelet Volume 10.5 fL (8.8-12.5); Monocytes # (Auto) 0.91 K/mcL (0.10-0.90); Monocytes % (Auto) 8.2 % (1.0-12.0); Neutrophils % (Auto) 68.4 % (38.0-78.0); Platelet Count 233 K/mcL (140-440); RBC 4.59 M/mcL (4.63-6.08); Red Cell Distribution Width 12.9 % (11.5-14.5); WBC 11.1 K/mcL (4.5-11.0)
[2022-08-19 07:22] LABS: ALT/SGPT 16 U/L (<40); AST/SGOT 14 U/L (<40); Albumin 3.4 gm/dL (3.2-5.2); Albumin/Globulin Ratio 1.4 (1.0-2.3); Alkaline Phosphatase 72 U/L (39-117); Bilirubin,Direct < 0.2 mg/dL (0-0.3); Bilirubin,Total 0.5 mg/dL (0.1-1.0); Blood Urea Nitrogen 16 mg/dL (8-23); Calcium 8.4 mg/dL (8.6-10.4); Carbon Dioxide 22 mmol/L (22-30); Chloride 107 mmol/L (96-108); Globulin 2.5 gm/dL (2.2-3.7); Glomerular Filtration Rate 102; Glucose 113 mg/dL (70-105); Lactate Dehydrogenase 149 U/L (135-225); Triglycerides 119 mg/dL (<150)
--- NOTE | 2022-08-19 08:28 | XRay Report ---
HISTORY: Follow-up small bowel obstruction FINDINGS: Supine and erect views were obtained. The stomach is now decompressed. There are several loops of mildly dilated jejunum in the left upper quadrant which measure up to 3.8 cm in diameter. These contain a few air-fluid levels. The ileum is decompressed. Normal quantity of stool is present in the large intestine. Large intestine is not dilated and there are no air-fluid levels within the colon. No free intra-abdominal air is present. There is no apparent soft tissue mass or abnormal calcification. IMPRESSION: Improving small bowel obstruction Interpreted and Authenticated by: Hao Morales 08/19/22
--- NOTE | 2022-08-19 12:27 | General Surgery Progress Note ---
SUBJECTIVE Subjective Patient information: Note initiated : 08/19/22 at 12:23 pm Service Date, if different from initiated Date: [] Patient: Duane Mcnulty 62 y/o M admitted on 08/18/22 for stomach pain. Chief Complaint: [] Principal diagnosis: Partial small bowel obstruction Interval history: Patient has done well throughout the night. He had some flatus but no bowel movement. His nausea and abdominal pain has resolved. Abdominal x-rays shows gas and stool extending to the rectum. Patient is advised that he will have small bowel follow-through today Constitutional Vitals: Vital Signs Temp Pulse Resp BP Pulse Ox O2 Del Method 97.8 F 55 L 16 114/74 98 08/19/22 08:00 08/19/22 08:00 08/19/22 08:00 08/19/22 08:00 08/19/22 08:00 08/19/22 08:00 Period Temp Pulse Resp BP Sys/Irene Pulse Ox O2 Del Method O2 Flow Rate Last 24 Hr 96.8 F-98.0 F 52-66 14-18 100-165/57-97 96-100 Room Air-Room Air Intake and Output 08/19/22 08/19/22 08/19/22 03:59 11:59 19:59 Intake Total 1000 1000 Output Total 550 Balance 450 1000 Weight 234 lb Intake & Output: Intake & Output 08/19/22 08/19/22 08/19/22 03:59 11:59 19:59 Intake Total 1000 1000 Output Total 550 Balance 450 1000 Weight 234 lb Intake: IV 1000 1000 Sodium Chloride 0.9% 1,000 ml @ 1000 1000 125 mls/hr IV .Q8H [facility] Rx#: [id number] Output: Void Amount 550 Other: Urine Appearance Clear Urine Color Dark Yellow ENT ENT exam: Present normal exam and normal oropharynx Neck Neck exam: Present full ROM and normal inspection Respiratory Respiratory exam: Present normal respiratory exam and CTAB Cardiovascular Cardiovascular exam: Present normal rate and rhythm, RRR, +S1 and +S2; Absent JVD GI/Abdominal GI/Abdominal exam: Present normal bowel sounds and soft; Absent distended or guarding Extremities Exam Extremities exam: Present normal inspection and neurovascular intact Neurological Exam Neurological exam: Present oriented X3; Absent motor sensory deficit Psychiatric Psychiatric exam: Present normal affect and normal mood A/P Assessment and plan (1) Abdominal pain: Status: Acute (2) Small intestine obstruction: Status: Chronic Plan After small bowel follow-through was completed patient will have a nasogastric tube discontinued and will be started on diet. 2 view abdominal x-ray in the morning Sepsis Sepsis Identified: No Time Spent With Patient Time: Total time spent is greater than 50% in coordination of care (as documented) at patient's floor/unit and/or counseling patient:
--- NOTE | 2022-08-19 14:30 | XRay Report ---
HISTORY: Recurrent small bowel obstruction FINDINGS: Following oral dilute Gastrografin contrast, serial images were obtained up to one hour post ingestion. Initial image was taken 10 minutes after swallowing barium, which shows most of the contrast has passed through the stomach into duodenum and jejunum. At 30 minutes the contrast had reached the distal ileum. By one hour the oral contrast has passed through small bowel into the distal descending colon. Intermittently there is borderline dilatation of a couple loops of jejunum in the left upper quadrant. However, no air-fluid levels are present. There is no evidence of mass or stricture. The small bowel dilatation seen on yesterday's CT scan has resolved. Five images were obtained IMPRESSION: Resolved small bowel obstruction Interpreted and Authenticated by: Hao Morales 08/19/22
[2022-08-20] MEDS: METOCLOPRAMIDE 10 MG/2 ML VIAL IV SCH ×2 (00:17→05:40)
[2022-08-20] MEDS: 0.9 % SODIUM CHLORIDE 10 ML SYRINGE IV SCH (05:40)
--- NOTE | 2022-08-20 06:57 | XRay Report ---
INDICATION: FOR F/U OF ILEUS TECHNIQUE: Supine and upright abdomen. COMPARISON: Previous small bowel study dated 08/19/2022. Previous CT scan dated 08/18/2022 FINDINGS:There is contrast material throughout the colon including the rectum. Colon is not dilated. No significantly dilated gas-filled small bowel. Bowel gas pattern is unremarkable without evidence for significant mechanical small bowel obstruction. No biliary or portal venous gas. No pneumoperitoneum. IMPRESSION: Unremarkable bowel gas pattern with contrast material throughout the colon Interpreted and Authenticated by: Vladimir Mccracken 08/20/22
--- NOTE | 2022-08-20 11:32 | Discharge Summary ---
Discharge Provider Provider IMPORTANT FOLLOW-UP INFORMATION FOR PCP: Patient information: Note initiated : 08/20/22 at 11:23 am Service Date, if different from initiated Date: [] Patient: Duane Mcnulty 62 y/o M admitted on 08/18/22 for stomach pain. Chief Complaint: [] Date of admission: 08/18/22 20:49 Discharge date: 08/20/22 Primary care physician: Thomas Suh MD Admitting clinician: Ramy Mcmanus Attending physician on admission: Ramy Mcmanus Consults: 08/19/22 07:35 Consult to Physician [CONS] Routine Comment: Consulting Provider: Ramy Mcmanus Reason For Exam: Physician to Consult Attending physician on discharge: Ramy Mcmanus Discharging clinician: Ramy Mcmanus COURSE Hospital Course Hospital course: 62-year-old male with prior history of admission for partial intestinal obstruction. He presented with a 1 day history of crampy abdominal pain with na usea. CT of the abdomen performed in the emergency room suggest jejunal obstruction. The patient however had gas extending to the rectum. He was observed and made n.p.o. He was given metoclopramide and had passage of gas and stool into his colon. A small bowel follow-through was performed on yesterday which showed transit to the distal rectum and 1 hour. He had multiple bowel movements and tolerated full liquid diet without difficulty. X-rays this morning shows clearing of contrast from the small bowel with clearing of most of the contrast from the colon. Patient is tolerating diet without difficulty. He does not have any abdominal pain nor does he have nausea. He is stable for discharge home. Discharge diagnosis: Partial small bowel obstruction Secondary discharge diagnosis: History of hypertension Reason for admission: Partial small bowel obstruction Procedures: None Pertinent studies/significant findings: Small bowel follow-through CT of abdomen and pelvis Complications: None Time Spent with Patient Time attestation: Total time spent providing and/or coordinating discharge services: Time spent: Less than 30 minutes Physical Examination Vital Signs Vital signs: Temp Pulse Resp BP Pulse Ox O2 Del Method 98.2 F 56 L 20 129/74 98 08/20/22 08:00 08/20/22 08:00 08/20/22 08:00 08/20/22 08:00 08/20/22 08:00 08/20/22 08:00 General physical appearance General physical exam: well developed, well nourished, no distress and no pain Eyes Eye exam: PERRL and normal ocular movement ENT ENT exam: normal mucosa, no hearing loss and no congestion Head Head exam IM: Present atraumatic, normal inspection and normocephalic Neck Neck exam: no masses, no bruits, trachea midline, no lymphadenopathy and no venous distension Cardiovascular Cardiovascular exam IM: Present normal rate and rhythm, RRR, +S1 and +S2; Absent JVD Respiratory Respiratory exam: normal expansion, normal respiratory effort and clear to auscultation Abdomen Abdomen: Present soft, non tender and bowel sounds (Normal bowel sounds); Absent masses Integumentary Integumentary: Present no rash, no growths and no abnormal pigmentation Neurologic Neurologic: Present normal coordination and normal sensation Musculoskeletal Musculoskeletal: Present normal gait and normal posture Psychiatric Psychiatric: Present oriented to time, oriented to person, oriented to place, speech is normal and memory intact Discharge Plan Patient/Caregiver Discharge Instructions Activity: increase activity as tolerated Diet: Regular Diet Instructions: Bowel Obstruction (GEN) Prescriptions: No Action losartan 100 mg tablet 100 mg PO QDAY Qty: 90 1RF metformin 500 mg tablet extended release 24hr 500 mg PO QDAY Qty: 90 1RF aspirin 81 mg tablet,chewable 81 mg PO QDAY Prescription drug monitoring program results: PDMP not reviewed Follow Up Plan Follow up with: Ramy Mcmanus MD [Physician] - None Thomas Suh MD [Primary Care Provider] - Patient Disposition: Home, Self-Care Assessment: Routine follow-up with primary care provider Prognosis: Good Rehab Potential: Good I certify that the patient requires SNF services: No Overall status at discharge: patient is progressing back to baseline Discharge Orders: Discharge Order (Routine); Ordered 08/20/22 Ordered By: Ramy Mcmanus Pending Pending Pending: Resuscitation Status Resuscitate (Full Code) Diet Regular Diet Start SatAug 20 0800 Hydromorphone HCl (Hydromorphone 1 Mg/Ml Syringe) 1 mg IV Q2HP PRN; Protocol PRN Reason: Per Pain Protocol Last Admin: 08/18/22 23:04 Dose: 1 mg Documented By: ARIANNA Metoclopramide HCl (Metoclopramide 10 Mg/2 Ml Vial) 10 mg IV Q6 ROMEO Last Admin: 08/20/22 05:40 Dose: Not Given Documented By: Admin: 08/20/22 00:17 Dose: Not Given Documented By: Admin: 08/19/22 17:47 Dose: Not Given Documented By: Admin: 08/19/22 13:12 Dose: Not Given Documented By: Admin: 08/19/22 05:15 Dose: 10 mg Documented By: Admin: 08/19/22 00:29 Dose: 10 mg Documented By: ARIANNA Sodium Chloride (0.9 % Sodium Chloride 10 Ml Syringe) 10 ml IV Q8 ROMEO Last Admin: 08/20/22 05:40 Dose: 10 ml Documented By: Admin: 08/19/22 20:45 Dose: 10 ml Documented By: Admin: 08/19/22 13:12 Dose: Not Given Documented By: Admin: 08/19/22 05:17 Dose: Not Given Documented By: Admin: 08/18/22 21:13 Dose: Not Given Documented By: ARIANNA Shift Summary 08/20/22 02:59 Shift Summary by Angelika Mayorga Primary Diagnosis: SBO Registration Status: Obs Date of Surgery (if applicable): Pertinent Medical Dx/Issue(s): SBO, HTN, diabetic Med management (antibiotics, diuretics, BP): Skin/Wound Care: Vital Signs with Trends: VSS, angelica O2, liter flow/saturations: RA Pain management (acute vs. chronic): No pain this shift, NO N/V Lab/Rad (abnormals, trends): WBC 11.1 Neuro/Mental Status: A&Ox4 Urinary Elimination Device: toilet Diet: Full liquid, tolerating well, regular diet for breakfast Date of last BM: 08/19 Lines/Tubes: IV RAC- SL Activity: Ad Yasmeen Recommendations/questions for MD: Discharge Plan (needs, disposition, etc): Home today Initialized on 08/20/22 02:59 - END OF NOTE
== END 2022-08-20 12:22 | disposition home or self-care (01) ==
LOC: ED 17:14 → MEDSUR 20:49 → INTOOBSV 20:49
PROVIDERS: ADMIT Family Medicine Adult Medicine; ATTEND Family Medicine Adult Medicine